=== PATIENT | female | born 1975 | race Caucasian/White ===

== ENCOUNTER 2019-01-30 12:42 | Emergency (ER) | payer MEDICAID ==
[~2019-01-30] VITALS: Ht 177.8 cm; Wt 84.8 kg
--- NOTE | 2019-01-30 12:42 | NUR ---
PATIENT BIB EMS TO BED 11.
--- NOTE | 2019-01-30 12:42 | NUR ---
Carolin miranda in [facility] - 01/30/19 at 1249 by MARYCARMEN PATIENT BIB
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
[2019-01-30 12:50] VITALS: BP 124/90
--- NOTE | 2019-01-30 13:41 | NUR ---
URINE COLLECTED VIA STRAIGHT CATH, PT TOLERATED WELL
--- NOTE | 2019-01-30 13:55 | NUR ---
EDMD AT BEDSIDE
[2019-01-30 13:58] LABS: APPEARANCE,URINE HAZY (CLEAR); BILIRUBIN,URINE NEGATIVE (NEGATIVE); BLOOD, URINE 2+ (NEGATIVE); COLOR,URINE YELLOW (YELLOW); LEUKOCYTE ESTERASE ,URINE 3+ (NEGATIVE); NITRITE, URINE NEGATIVE (NEGATIVE); UGLUCOSE NEGATIVE (NEGATIVE)
--- NOTE | 2019-01-30 13:58 | NUR ---
Carolin miranda in [facility] - 01/30/19 at 1358 by CHRIS DOCTOR AT BEDSIDE
[2019-01-30 14:09] LABS: CALCIUM OXALATE CRYSTALS,UR 0-10 /HPF (None Seen); RBC,URINE 0-5 /HPF (0-5); WBC,URINE TOO MANY TO COUNT /HPF (0-5); YEAST,URINE Moderate /HPF (None Seen)
[2019-01-30 15:10] VITALS: BP 127/89
--- NOTE | 2019-01-30 15:10 | NUR ---
Patient discharged with v/s stable. Written and verbal after care instructions given and explained. Patient alert, oriented and verbalized understanding of instructions. [facility] with [facility]. All questions addressed prior to discharge. ID band removed. Patient advised to follow up with PMD. Rx of DIFLUCAN, CEPHALEXIN given. Patient educated on indication of medication including possible reaction and side effects. Opportunity to ask questions provided and answered.
--- NOTE | 2019-01-30 15:22 | NUR ---
CALLED [facility] AND WAS NOT ABLE TO GET A HOLD OF A NURSE
--- NOTE | 2019-01-30 15:23 | NUR ---
CALLED [facility] , SPOKE TO [employer] HELPER (LESA), AND NOTIFIED THAT PT WAS BEING DISCHARGED
[2019-02-01 12:10] LABS: CHLAMYDIA TRACHOMATIS AMP DNA NEGATIVE (NEGATIVE)
== END 2019-01-30 15:10 ==
LOC: MED 12:42
DX: T74.21XA Adult sexual abuse, confirmed, initial encounter (principal); N39.0 Urinary tract infection, site not specified; B34.9 Viral infection, unspecified; K21.9 Gastro-esophageal reflux disease without esophagitis; I10 Essential (primary) hypertension; E03.9 Hypothyroidism, unspecified; F20.9 Schizophrenia, unspecified; Z87.820 Personal history of traumatic brain injury; Z88.8 Allergy status to other drugs, medicaments and biological substances
CPT/HCPCS: 36415; 81001; 87086; 99283; C1758; 87491